=== PATIENT | female | born 1990 | race Two or more races ===

== ENCOUNTER 2017-11-06 16:36 | Inpatient (IN) | payer BC ==
[~2017-11-06] VITALS: Ht 162.6 cm; Wt 67.4 kg
[2017-11-06 17:23] LABS: HEMATOCRIT 38.2 % (36.0-46.0); HEMOGLOBIN 12.8 G/DL (11.9-15.5); MCH 26.7 PG (29.0-34.0); MCHC 33.5 G/DL (30.0-36.0); MCV 79.6 FL (83-99); PLATELET COUNT 280 K/uL (156-360); RBC DIS.WIDTH-CV 13.7 % (11.8-14.6); WHITE BLOOD COUNT 9.4 K/uL (4.1-10.2)
[2017-11-06 17:39] LABS: CHLORIDE 107 mEq/L (99-109); POTASSIUM 4.2 mEq/L (3.7-5.4); SODIUM 140 mEq/L (136-147)
[2017-11-06 17:41] LABS: GLUCOSE 126 mg/dL (70-99)
[2017-11-06 17:45] LABS: CREATININE 0.8 mg/dL (0.6-1.3); GFR ESTIMATE (CALCULATED) > 59 mL/min/; UREA NITROGEN (BUN) 12 mg/dL (9-23)
[2017-11-06] MEDS ORDERED: NEOMYCIN-POLYMY10 ML RIGHT EAR (19:49)
[2017-11-06] MEDS ORDERED: AMOXICILLIN500 MG PO (19:49)
[2017-11-06] MEDS ORDERED: LEVOTHYROXINE25 MCG PO (19:50)
[2017-11-06] MEDS ORDERED: CYANOCOBAL1000 MCG/2 IM (19:51)
[2017-11-06] MEDS ORDERED: ADVIL200 MG PO (19:52)
[2017-11-06 22:48] VITALS: BP 109/53
[2017-11-07] VITALS (7 sets, daily range): BP systolic 89–118; BP diastolic 50–57
[2017-11-07 11:06] LABS: BASOPHIL (%) 0 % (0-1); EOSINOPHIL (%) 0 % (0-5); HEMATOCRIT 35.3 % (36.0-46.0); HEMOGLOBIN 11.6 G/DL (11.9-15.5); IMMATURE GRANULOCYTE (%) 0.2 % (0.0-0.7); LYMPHOCYTE (%) 10.7 % (15-42); LYMPHOCYTE COUNT 0.9 K/uL (1.0-2.8); MCH 26.3 PG (29.0-34.0); MCHC 32.9 G/DL (30.0-36.0); MONOCYTE COUNT 0.2 K/uL (0-0.8); NEUTROPHIL (%) 87.1 % (45-76); NEUTROPHIL COUNT 7.5 K/uL (1.8-6.4); PLATELET COUNT 267 K/uL (156-360); RBC DIS.WIDTH-CV 14.1 % (11.8-14.6); RBC DIS.WIDTH-SD 40.9 % (39-53); RED BLOOD COUNT 4.41 M/uL (3.80-5.20); WHITE BLOOD COUNT 8.6 K/uL (4.1-10.2)
[2017-11-07 11:30] LABS: CHLORIDE 110 MEQ/L (99-109); CREATININE 0.6 MG/DL (0.6-1.3); GFR ESTIMATE (CALCULATED) > 59 mL/min/; POTASSIUM 3.9 MEQ/L (3.7-5.4); SODIUM 139 MEQ/L (136-147); UREA NITROGEN (BUN) 9 mg/dL (9-23)
[2017-11-07 11:33] LABS: GLUCOSE 199 mg/dL (70-99)
[2017-11-08 06:06] LABS: BASOPHIL (%) 0.4 % (0-1); EOSINOPHIL (%) 1.2 % (0-5); EOSINOPHIL COUNT 0.1 K/uL (0-0.3); HEMATOCRIT 33.1 % (36.0-46.0); HEMOGLOBIN 10.6 G/DL (11.9-15.5); IMMATURE GRANULOCYTE (%) 0.2 % (0.0-0.7); LYMPHOCYTE (%) 35.4 % (15-42); LYMPHOCYTE COUNT 2.9 K/uL (1.0-2.8); MCV 81.1 FL (83-99); MONOCYTE (%) 6.4 % (3-12); MONOCYTE COUNT 0.5 K/uL (0-0.8); NEUTROPHIL (%) 56.4 % (45-76); NEUTROPHIL COUNT 4.6 K/uL (1.8-6.4); PLATELET COUNT 230 K/uL (156-360); RBC DIS.WIDTH-CV 14.3 % (11.8-14.6); RED BLOOD COUNT 4.08 M/uL (3.80-5.20); WHITE BLOOD COUNT 8.1 K/uL (4.1-10.2)
[2017-11-08 06:46] LABS: C-REACTIVE PROTEIN 4.5 MG/L (0-10); CHLORIDE 110 MEQ/L (99-109); CREATININE 0.7 MG/DL (0.6-1.3); GFR ESTIMATE (CALCULATED) > 59 mL/min/; POTASSIUM 4.2 MEQ/L (3.7-5.4); SODIUM 143 MEQ/L (136-147); UREA NITROGEN (BUN) 13 mg/dL (9-23)
[2017-11-08 06:52] LABS: GLUCOSE 112 mg/dL (70-99)
[2017-11-08 08:13] VITALS: BP 112/59
[2017-11-08 08:13] LABS: ERTH.SED.RATE 24 MM/HR (0-20)
[2017-11-08 15:54] VITALS: BP 95/54
[2017-11-08] MEDS ORDERED: CEFPODOXIME PR200 MG PO (18:38)
[2017-11-08] MEDS ORDERED: BENADRYL25 MG PO (18:39)
[2017-11-08] MEDS ORDERED: TYLENOL325 M2 PO (18:40)
== END 2017-11-08 19:43 | disposition home or self-care (01) | DRG 153 ==
LOC: EME 16:36 → EDOF 20:47 → 2EAST 20:47 → ENRESERV 20:58 → 2EAST 22:41
PROVIDERS: Nurse Practitioner Family; Student in an Organized Health Care Education/Training Program
DX: H70.91 Unspecified mastoiditis, right ear (principal); H66.91 Otitis media, unspecified, right ear; H61.21 Impacted cerumen, right ear; E03.9 Hypothyroidism, unspecified; E53.8 Deficiency of other specified B group vitamins; Z91.14 Patient's other noncompliance with medication regimen
CPT/HCPCS: 70487; 80048; 80202; 85025; 85027; 85651; 86140; 87040; 99281; 99285; J0696; J1885; J2405; J2543; J2930; J3370; J7030; J7050; S0028